=== PATIENT | male | born 1945 | race Caucasian/White ===

== ENCOUNTER 2016-06-24 13:00 | Outpatient (CLI) | payer OTHER | END 2016-06-24 13:01 | disposition home or self-care (01) | DX: R10.32 Left lower quadrant pain (principal) ==

== ENCOUNTER 2016-08-08 20:53 | Emergency (ER) | payer OTHER ==
--- NOTE | 2016-08-08 21:04 | ED Physician Documentation ---
PD HPI FEVER - Stated complaint Stated Complaint: FEVER/SHAKES X'S 4 HRS - Chief complaint Chief Complaint: General - History obtained from History obtained from: Patient, Family - History of Present Illness Timing - onset: Enter time (16:30) Timing details: Abrupt onset Pain level now: 7 Associated symptoms: Chills, Rigors. No: Sweats, Ear pain, Nasal congestion, Sore throat Recently seen: Not recently seen - Additional information Additional information: c/o generalized shaking, chills, started 4:30 PM today. He says he felt "freezing cold". Review of Systems Constitutional: reports: Fever (did not take temperature at home, but febrile in ED), Chills, Myalgias. denies: Sweats Ears: reports: Reviewed and negative Cardiac: reports: Reviewed and negative Respiratory: reports: Reviewed and negative GI: reports: Abdominal Pain, Nausea. denies: Vomiting : denies: Dysuria Skin: denies: Rash Musculoskeletal: denies: Extremity pain PD PAST MEDICAL HISTORY - Past Medical History Past Medical History: Yes Cardiovascular: Hypertension Endocrine/Autoimmune: Type 2 diabetes - Past Surgical History Past Surgical History: No - Present Medications Home Medications: Ambulatory Orders Medication Instructions Recorded Confirmed Aspirin 81 mg PO DAILY 08/08/16 08/08/16 Bupropion HCl [Bupropion HCl Sr] 150 mg PO DAILY 08/08/16 08/08/16 Cholecalciferol (Vitamin D3) 1,000 unit PO DAILY 08/08/16 08/08/16 [Vitamin D3] Cyanocobalamin (Vitamin B-12) 1,000 mcg PO DAILY 08/08/16 08/08/16 [Vitamin B-12] Gabapentin 100 mg PO BID 08/08/16 08/08/16 Losartan Potassium 100 mg PO DAILY 08/08/16 08/08/16 Metformin HCl 1,000 mg PO BID 08/08/16 08/08/16 Methylphenidate HCl [Concerta] 27 mg PO DAILY 08/08/16 08/08/16 Multivitamin [Multivitamins] 1 each PO DAILY 08/08/16 08/08/16 Omeprazole 20 mg PO DAILY 08/08/16 08/08/16 Prednisone 5 mg PO DAILY 08/08/16 08/08/16 Rosuvastatin Calcium [Crestor] 5 mg PO DAILY 08/08/16 08/08/16 Sulindac 200 mg PO BID 08/08/16 08/08/16 Clindamycin HCl 300 mg PO QID 10 Days 08/09/16 - Allergies Allergies/Adverse Reactions: Allergies Allergy/AdvReac Type Severity Reaction Status Date / Time No Known Drug Allergies Allergy Verified 08/08/16 21:03 PD ED PE NORMAL - Vitals Vital signs reviewed: Yes - General General: Alert and oriented X 3, No acute distress, Well developed/nourished - HEENT HEENT: PERRL, EOMI, Moist mucous membranes, Pharynx benign - Neck Neck: Supple, no meningeal sign - Cardiac Cardiac: RRR, No murmur - Respiratory Respiratory: No respiratory distress, Clear bilaterally - Abdomen Abdomen: Soft, Non distended, Other (mild tenderness LLQ) - Back Back: No CVA TTP - Extremities Extremities: No edema PD ED PE EXPANDED - Extremities NIDIA LE visual: 1 - rash (confluent erythema that is hot to touch, nontender and without fluctuance.) Results - Vitals Vitals: Oxygen O2 Source Room air - Labs Labs: Laboratory Tests 08/08/16 08/08/16 08/08/16 21:37 21:37 21:37 WBC 5.5 RBC 5.10 Hgb 14.9 Hct 43.0 MCV 84.2 MCH 29.1 MCHC 34.6 RDW 15.0 Plt Count 116 L MPV 8.3 Neut # 5.0 Lymph # 0.4 L Slope # 0.1 Eos # 0.1 Baso # 0.0 Absolute Nucleated RBC 0.00 Nucleated RBCs 0.0 Sodium 137 Potassium 3.8 Chloride 104 Carbon Dioxide 23 Anion Gap 10.0 BUN 20 Creatinine 1.0 Estimated GFR (MDRD) 74 L Glucose 154 H Lactic Acid 1.8 Calcium 10.1 Total Bilirubin 1.0 AST 27 ALT 42 Alkaline Phosphatase 54 Total Protein 7.0 Albumin 4.4 Globulin 2.6 Albumin/Globulin Ratio 1.7 Lipase 23 Urine Color Urine Clarity Urine pH Ur Specific [place] Urine Protein Urine Glucose (UA) Urine Ketones Urine Occult Blood Urine Nitrite Urine Bilirubin Urine Urobilinogen Ur Leukocyte Esterase Ur Microscopic Review Urine Culture Comments 08/08/16 21:37 WBC RBC Hgb Hct MCV MCH MCHC RDW Plt Count MPV Neut # Lymph # Slope # Eos # Baso # Absolute Nucleated RBC Nucleated RBCs Sodium Potassium Chloride Carbon Dioxide Anion Gap BUN Creatinine Estimated GFR (MDRD) Glucose Lactic Acid Calcium Total Bilirubin AST ALT Alkaline Phosphatase Total Protein Albumin Globulin Albumin/Globulin Ratio Lipase Urine Color YELLOW Urine Clarity CLEAR Urine pH 6.0 Ur Specific [place] 1.020 Urine Protein NEGATIVE Urine Glucose (UA) NEGATIVE Urine Ketones NEGATIVE Urine Occult Blood NEGATIVE Urine Nitrite NEGATIVE Urine Bilirubin NEGATIVE Urine Urobilinogen 0.2 (NORMAL) Ur Leukocyte Esterase NEGATIVE Ur Microscopic Review NOT INDICATED Urine Culture Comments NOT INDICATED - Rads (name of study) CT A/P Radiology: Prelim report reviewed, See rad report PD MEDICAL DECISION MAKING - ED course Complexity details: reviewed results, re-evaluated patient, considered differential, d/w patient ED course: Presents to ED with fever. Exam is remarkable for LLE cellulitis but also LLQ tenderness. He says he has had the LLQ episodically and is thus scheduled to have a colonoscopy to further evaluate this discomfort. He has not yet had diagnostic testing for the abdominal pain. My concern was diverticulitis, but the CT A/P showed no evidence of diverticulitis. There was lymphadenopathy in the LLQ, c/w inflammatory changes associated with the lymphatics draining the LLE cellulitis Departure - Departure Disposition: 01 Home, Self Care Clinical Impression: Cellulitis of leg Qualifiers: Laterality: left Qualified Code(s): L03.116 - Cellulitis of left lower limb Condition: Good Instructions: Cellulitis Dc Follow-Up: [facility] [Provider Group] [facility] [Provider Group] Prescriptions: Clindamycin HCl 300 mg PO QID 10 Days Comments: Follow up with your primary care physician in 3-5 days for reevaluation Discharge Date/Time: 08/09/16 01:47
[2016-08-08 21:53] LABS: BASOPHILS % (AUTO) 0.1 %; EOSINOPHILS # (AUTO) 0.1 10^3/uL (0.0-0.7); EOSINOPHILS % (AUTO) 1.1 %; HGB - HEMOGLOBIN 14.9 g/dL (14.0-18.0); LYMPHOCYTES # (AUTO) 0.4 10^3/uL (1.5-3.5); MEAN CORPUSCULAR HEMOGLOBIN 29.1 pg (27.0-31.0); MEAN PLATELET VOLUME 8.3 fL (7.4-11.4); MONOCYTES # (AUTO) 0.1 10^3/uL (0.0-1.0); MONOCYTES % (AUTO) 1.5 %
[2016-08-08 21:56] LABS: BILIRUBIN,URINE NEGATIVE (NEGATIVE)
[2016-08-08 21:58] LABS: LYMPHOCYTES % (AUTO) 6.9 %; MEAN CORPUSCULAR HGB CONC 34.6 g/dL (32.0-36.0); MEAN CORPUSCULAR VOLUME 84.2 fL (80.0-94.0); NEUTROPHILS % (AUTO) 90.4 %; UNCORRECTED WHITE BLOOD COUNT 5.5 x10^3/uL; WHITE BLOOD COUNT 5.5 x10^3/uL (4.8-10.8)
[2016-08-08 22:01] LABS: UA CHARGE (STRIP ONLY) YES; UR CULTURE IF IND NOT INDICATED
[2016-08-08 22:09] LABS: ALBUMIN/GLOBULIN RATIO 1.7 (1.0-2.2); CALCIUM 10.1 mg/dL (8.5-10.3); POTASSIUM 3.8 mmol/L (3.5-5.0)
[2016-08-08] MEDS: SODIUM CHLORIDE 0.9% 1,000 ML IV STA (22:12)
[2016-08-08] MEDS: IOPAMIDOL-300 100 ML VIAL IVP ONE (23:13)
--- NOTE | 2016-08-08 23:15 | CT Preliminary Report ---
Exam: CT Abdomen/Pelvis W/ IMPRESSION: 1. Fat stranding and minimal lymph node prominence along the lower left aorta, left iliac, and left c ommon femoral vessels, possibly lymphangitis. 2. Mild splenomegaly. 3. Nonobstructing 3 mm left intrarenal calcification. [facility] SITE ID: [id number]
--- NOTE | 2016-08-08 23:17 | CT Report ---
EXAM: CT ABDOMEN AND PELVIS EXAM DATE: 08/08/2016 10:42 PM. CLINICAL HISTORY: Fever. LLQ pain. COMPARISONS: None. TECHNIQUE: Routine helical CT imaging was performed through the abdomen and pelvis. IV contrast: 100 cc of Isovue-300. Enteric contrast: No. Reconstructions: Coronal and sagittal. In accordance with CT protocol optimization, one or more of the following dose reduction techniques w ere utilized for this exam: automated exposure control, adjustment of mA and/or KV based on patient s ize, or use of iterative reconstructive technique. FINDINGS: Lung Bases: Coronary artery and mitral valve calcification noted, otherwise unremarkable. Liver: Normal. No masses. Gallbladder/Bile Ducts: Unremarkable. Spleen: Mildly enlarged. Pancreas: Normal. Adrenal Glands: Normal. Kidneys: Nonobstructing 3 mm intrarenal calculus on the left, otherwise unremarkable. Peritoneal Cavity/Bowel: Normal. No free fluid, free air or adenopathy. No masses or acute inflammato ry process. The appendix is well visualized and normal. Pelvic Organs: Prostate and bladder are unremarkable. Vasculature: No aortic aneurysm. Mild left carotid calcification. Fat stranding with minimally promin ent lymph nodes noted to the left of the lower aorta and along the left iliac and common femoral vess els. Bones: No significant abnormality. Other: Small fat-containing umbilical hernia noted. IMPRESSION: 1. Fat stranding and minimal lymph node prominence along the lower left aorta, left iliac, and left c ommon femoral vessels, possibly lymphangitis. 2. Mild splenomegaly. 3. Nonobstructing 3 mm left intrarenal calcification. [facility] Referring Provider Line: [phone] SITE ID: [id number]
--- NOTE | 2016-08-08 23:21 | XRAY Preliminary Report ---
Exam: XR Chest 2 View PA/LAT IMPRESSION: Normal 2-view chest radiography. [facility] SITE ID: [id number]
--- NOTE | 2016-08-08 23:23 | XRAY Report ---
EXAM: CHEST RADIOGRAPHY EXAM DATE: 08/08/2016 10:50 PM. CLINICAL HISTORY: Cough and fever. COMPARISON: None. TECHNIQUE: 2 views. FINDINGS: Lungs/Pleura: No focal opacities evident. No pleural effusion. No pneumothorax. Normal volumes. Mediastinum: Heart and mediastinal contours are unremarkable. Other: Cervical fusion noted. No compression fractures. IMPRESSION: Normal 2-view chest radiography. [facility] Referring Provider Line: [phone] SITE ID: [id number]
[2016-08-09] MEDS ORDERED: IBUPROFEN 800 MG TABLET PO ONE (00:01)
[2016-08-09] MEDS: IBUPROFEN 800 MG TABLET PO STA (00:04)
[2016-08-09 01:17] VITALS: BP 133/69
[2016-08-09] MEDS ORDERED: CLINDAMYCIN 150 MG CAPSULE PO ONE (01:37)
[2016-08-09] MEDS ORDERED: cefTRIAXone 1 GM VIAL ONE (01:37)
[2016-08-09] MEDS: cefTRIAXone 1 GM in SODIUM CHLORIDE 0.9% MINIBAG 100 ML IV STA (01:42)
[2016-08-09] MEDS: CLINDAMYCIN 150 MG CAPSULE PO STA (01:42)
== END 2016-08-09 01:47 | disposition home or self-care (01) ==
LOC: ED 20:53
DX: L03.116 Cellulitis of left lower limb (principal); I10 Essential (primary) hypertension; E11.9 Type 2 diabetes mellitus without complications; Z79.84 Long term (current) use of oral hypoglycemic drugs; Z79.82 Long term (current) use of aspirin
CPT/HCPCS: 36415; 71020; 74177; 80053; 81001; 81003; 83605; 83690; 85025; 87086; 96365; 99284

== ENCOUNTER 2020-02-08 05:21 | Outpatient (CLI) | payer OTHER | END 2020-02-08 05:22 | disposition EMS.NT | LOC: EMS 05:21 | PROVIDERS: ATTEND Surgery | DX: Z03.89 Encounter for observation for other suspected diseases and conditions ruled out (principal) ==

== ENCOUNTER 2023-08-27 11:45 | Outpatient (CLI) | payer OTHER | END 2023-08-27 12:00 | disposition home or self-care (01) | LOC: LAB.N 11:45 | PROVIDERS: ATTEND Physician Assistant Medical | DX: M79.89 Other specified soft tissue disorders (principal) | CPT/HCPCS: 36415; 85379 ==

== ENCOUNTER 2023-08-27 12:00 | Outpatient (CLI) | payer OTHER ==
--- NOTE | 2023-08-27 16:01 | XRAY Report ---
PROCEDURE: Foot 1-2V RT INDICATIONS: CONTUSION OF RIGHT LESSER TOE(S) WITHOUT NAIL DAMAGE TECHNIQUE: 2 views of the foot were acquired. COMPARISON: None. FINDINGS: Bones: No fractures or dislocations. No suspicious bony lesions. Soft tissues: No tibiotalar joint effusion. Achilles tendon appears normal. IMPRESSION: No acute bony abnormality. Reviewed by: Charles Morel MD on 08/27/2023 3:59 PM PDT Approved by: Charles Morel MD on 08/27/2023 3:59 PM PDT Station ID: [id number]
== END 2023-08-27 12:15 | disposition home or self-care (01) ==
LOC: DI.N 12:00
PROVIDERS: ATTEND Physician Assistant Medical
DX: S90.121A Contusion of right lesser toe(s) without damage to nail, initial encounter (principal); M79.89 Other specified soft tissue disorders
CPT/HCPCS: 36415; 85379

== ENCOUNTER 2023-09-06 08:00 | Outpatient (CLI) | payer OTHER | END 2023-09-06 23:59 | disposition home or self-care (01) | LOC: LAB.N 08:00 | PROVIDERS: ATTEND Family Medicine | DX: R30.0 Dysuria (principal); N48.1 Balanitis | CPT/HCPCS: 87086 ==